=== PATIENT | female | born 1940 ===

== ENCOUNTER 2017-01-15 05:27 | Day surgery (SDC) | payer MEDICARE, BC ==
[~2017-01-15] VITALS: Ht 165.1 cm; Wt 47.3 kg
--- NOTE | ~2017-01-15 | OR ---
PATIENT'S NAME: GIO RICHARDSON [facility] AGE: 76 Y [address] ROOM: [place] [address] LOCATION: [facility] [place] ADMIT DATE: 01/15/2017 OR/Procedure Report DISCHARGE DATE: 01/15/2017 FAMILY PHYSICIAN: Korina Betancur MD ATTENDING PHYSICIAN: LUCERO WOODARD SURGEON: Lucero Woodard MD VERTICAL MILL OPERATOR: Santi Pulido MD. DATE OF PROCEDURE: 01/15/2017 PREOPERATIVE DIAGNOSIS: Left thyroid nodule. POSTOPERATIVE DIAGNOSIS: Left thyroid nodule. PROCEDURES: 1. Left thyroid lobectomy with frozen section. 2. Recurrent laryngeal nerve monitoring, EMG, 1 hour. ANESTHESIA: General endotracheal. COMPLICATIONS: None. BLOOD LOSS: 25 mL. FINDINGS: Large left-sided thyroid lobe with negative frozen section for malignancy. SPECIMEN: Left thyroid lobe. INDICATION: The patient is a pleasant 76-year-old female who was identified to have a left thyroid nodule which, on FNA, returned as a follicular lesion of undetermined significance. 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 She elected for observation. A repeat ultrasound was performed 3 months later, which did show slight growth in the dominant nodule on the left side and, therefore, we proceeded with surgery including left thyroid lobe with plans for frozen section and possible total if necessary. The patient was informed of this and consent was obtained. DESCRIPTION OF PROCEDURE: The patient was brought from the preoperative area to the operative suite and placed on table in supine position. All pressure points were padded. Time-out was performed correctly identifying the patient and procedure. General endotracheal anesthesia was initiated. The NIM system was hooked up and calibrated. After this was done, the neck was prepped and draped in the usual sterile fashion, marked out with a 4-cm incision in a horizontal skin crease. Injected with 1% lidocaine with epinephrine. PATIENT'S NAME: GIO RICHARDSON [facility] AGE: 76 Y [address] ROOM: [place] [address] LOCATION: [facility] [place] ADMIT DATE: 01/15/2017 OR/Procedure Report DISCHARGE DATE: 01/15/2017 FAMILY PHYSICIAN: Kroina Betancur MD ATTENDING PHYSICIAN: LUCERO WOODARD Thereafter, incised with 15 blade down through the subcutaneous tissues. Cautery was used to take this down to the level of the straps. Superior and inferior flaps were raised and, thereafter, the straps divided in the midline. The left thyroid lobe was then identified and fully exposed. The lateral lobe was exposed. This was carried up to the superior pole. Ultimately, the superior lobe was isolated, and the vessels identified and taken down with Harmonic scalpel. The lobe was then retracted out of the wound, and we began our search for the recurrent laryngeal nerve. This was positively identified both visually and with the stimulator of the NIM system. This was carefully preserved during further dissection. The inferior lobe was then released as well as the inferior thyroid vessels. The inferior parathyroid gland was identified and preserved. The remainder of the lobe was carefully dissected out and ultimately taken off the trachea and divided along the isthmus. The superior parathyroid gland was not identified. After removal, spot hemostasis was achieved with suture ties. Frozen section margin did return without malignancy identified. Therefore, the wound was thoroughly irrigated. Again, hemostasis ensured. The recurrent laryngeal nerve was once again stimulated, and this was shown to be intact electrically. The wound was then closed with loose Vicryl sutures along the strap muscles, followed by platysma closure with Vicryl sutures, followed by subcuticular Monocryl suture and then Steri- Strips. A small dressing was then applied. The patient was awakened from anesthesia and transferred to the recovery room in stable condition. MD TEAGAN VIDAL/komal /[id number] d: 01/15/17 1603 t: 01/29/17 1015, OPERATIVE SUMMARY
[~2017-01-15 05:27] MED LIST: ADVIL200 MG PO; ASCORBIC ACID500 MG PO; CALCIFOOD PO; CALCIUM LACTATE84 MG PO; CATAPLEX B PO; CATAPLEX D PO; CATAPLEX PO; ESCITALOPRAM OX10 MG PO; PRILOSEC20 MG PO; VITAMIN C1000 MG PO
[2017-01-15 06:13] LABS: PROTIME 10.3 SECONDS (9.6-11.1)
[2017-01-15] MEDS ORDERED: ROXICODONE 5MG (5 MG PO (09:30)
== END 2017-01-15 12:25 | disposition disaster alternative care site (69) ==
LOC: GMSU 05:27 → GSDC 05:27
PROVIDERS: Otolaryngology
PROC: 0GTG0ZZ Resection of Left Thyroid Gland Lobe, Open Approach (ICD-10-PCS; principal; 2017-01-15)
DX: D34 Benign neoplasm of thyroid gland (principal); E06.3 Autoimmune thyroiditis; J45.909 Unspecified asthma, uncomplicated; Z88.8 Allergy status to other drugs, medicaments and biological substances; Z79.899 Other long term (current) drug therapy; Z79.82 Long term (current) use of aspirin; Z90.710 Acquired absence of both cervix and uterus; Z98.51 Tubal ligation status; Z98.890 Other specified postprocedural states
CPT/HCPCS: J2001; J7120

== ENCOUNTER 2017-01-15 22:55 | Emergency (ER) | payer MEDICARE, BC ==
--- NOTE | ~2017-01-15 | ER ---
PATIENT'S NAME: GIO RICHARDSON [facility] AGE: 76 Y [address] ROOM: [place] [id number] LOCATION: [facility] ADMIT DATE: 01/15/2017 ER/Outpatient Report DISCHARGE DATE: 01/15/2017 FAMILY PHYSICIAN: Korina Betancur MD ATTENDING PHYSICIAN: Elana Casillas HISTORY OF PRESENT ILLNESS: This is a 76-year-old female, who presents today with chief complaint of bleeding from postop wound site. The patient was supposed to have some sort of thyroid surgery and done by Dr. Baez earlier today. She said she had some nodules removed. She says that she was fine. She did not have any cancer from the biopsy. It was Steri-Stripped and she was sent home. The patient said she had done well, took a nap and then woke up with her shirt soaked in blood. The patient said she "freaked out" and called Dr. Pulido, who told her to put some ice compresses on it and then the bleeding stopped at home, but she want to come into get checked out. She reports some mild pain, but does not want anything for pain at this time. Denies any nausea, vomiting, dizziness, lightheadedness or any other complaints. PAST MEDICAL HISTORY: Includes: 1. Thyroid history. 2. Elevated lipids. 3. Positive shingles. PAST SURGICAL HISTORY: 1. Recent thyroid nodule removal. 2. Tonsillectomy. 3. Hysterectomy. MEDS: Please see med list. ALLERGIES: PLEASE SEE LIST. SOCIAL HISTORY: She does not smoke, drink or use any drugs. REVIEW OF SYSTEMS: Reviewed by me and negative with the exception of those discussed in HPI. PHYSICAL EXAMINATION: VITAL SIGNS: She is 5 feet 4 inches. She weighs 49.5 kilos, blood pressure 128/63, heart rate 84, respiratory rate 18, temperature 98.7 tympanic, PATIENT'S NAME: GIO RICHARDSON [facility] AGE: 76 Y [address] ROOM: [place] [address] LOCATION: [facility] ADMIT DATE: 01/15/2017 ER/Outpatient Report DISCHARGE DATE: 01/15/2017 FAMILY PHYSICIAN: Korina Betancur MD ATTENDING PHYSICIAN: Elana Casillas saturating 96% on room air. GENERAL: The patient is a very pleasant, speaking in full sentences. She is not pale or diaphoretic. Well appearing. NECK: I looked at the wound site, she has some mild bruising over her neck and around this incision site. The incision site is probably about 4 cm linear. Incision looks clean, dry, and intact. There is no drainage. It is not bleeding. She does have like 6 Steri-Strips found their. Few of them are bloody, but dry blood. There is no active bleeding. There is no crepitus. Very nontender. HEART: Regular rate and rhythm. LUNGS: Sounds are clear. She does not have any evidence of stridor. THROAT: Clear. SKIN: Warm, dry, intact. She does not have any signs of increased bruising. EMERGENCY ROOM COURSE: I just reinforced the Steri-Strips. Reassured the patient. We will have her follow up with Dr. Baez. She understands reasons to go back to the ER sooner. IMPRESSION: Bleeding from postop site. MD MICHELLE GAMING/komal /[id number] d: 01/16/172 t: 01/16/17 1818, OUTPATIENT REPORT
[~2017-01-15 22:55] MED LIST changes: +ROXICODONE 5MG (5 MG PO
== END 2017-01-15 23:31 | disposition disaster alternative care site (69) ==
LOC: GMED 22:55
DX: E89.810 Postprocedural hemorrhage of an endocrine system organ or structure following an endocrine system procedure (principal); Z90.89 Acquired absence of other organs; Z90.710 Acquired absence of both cervix and uterus